=== PATIENT | male | born 1980 | race Caucasian/White ===

== ENCOUNTER 2019-01-26 12:52 | Inpatient (IN) | payer BC ==
[~2019-01-26] VITALS: Ht 180.3 cm; Wt 79.9 kg
[2019-01-26] MEDS ORDERED: ZOLPIDEM TARTRATE 10 MG TABLET PO PRN (19:00)
[2019-01-26] MEDS ORDERED: LORazepam 2 MG TABLET PO PRN (19:00)
[2019-01-26] MEDS ORDERED: HALOPERIDOL 5 MG TABLET PO PRN (19:00)
[2019-01-26 21:30] VITALS: BP 126/86
[2019-01-26] MEDS ORDERED: PNEUMOCOCCAL VACCINE POLYVALENT 0.5 ML VIAL [PPSV23] IM ONE (21:45)
[2019-01-27 05:58] VITALS: BP 153/75
[2019-01-27] MEDS ORDERED: MAGNESIUM HYDROXIDE SUSPENSION 30 ML UDCUP PO PRN (07:45)
[2019-01-27] MEDS ORDERED: GuaiFENesin/D-METHORPHAN [SUGAR-FREE] 200-20MG/10 ML SYRUP UDCUP PO PRN (07:45)
[2019-01-27] MEDS ORDERED: PETROLATUM,WHITE 28 GM JELLY TP PRN (07:45)
[2019-01-27] MEDS ORDERED: MAG HYDROX/AL HYDROX/SIMETH ES 30 ML SUSPENSION UDCUP PO PRN (07:45)
[2019-01-27] MEDS ORDERED: ALBUTEROL SULFATE HFA 90 MCG/PUFF 8 GM INHALER IH PRN (07:45)
[2019-01-27] MEDS ORDERED: ONDANSETRON HCL 4 MG TABLET PO PRN (07:45)
[2019-01-27] MEDS ORDERED: NICOTINE 14 MG/24 HOUR PATCH TD PRN (07:45)
[2019-01-27] MEDS ORDERED: ACETAMINOPHEN 325 MG TABLET PO PRN (07:45)
[2019-01-27] MEDS ORDERED: DOCUSATE SODIUM 100 MG CAPSULE PO PRN (07:45)
[2019-01-27] MEDS ORDERED: LOPERAMIDE HCL 2 MG CAPSULE PO PRN (07:45)
[2019-01-27] MEDS ORDERED: CloNIDine HCL 0.1 MG TABLET PO PRN (07:45)
[2019-01-27] MEDS ORDERED: IBUPROFEN 400 MG TABLET PO PRN (07:45)
[2019-01-27 09:01] VITALS: BP 141/97
[2019-01-27 16:42] VITALS: BP 138/85
[2019-01-28 08:35] VITALS: BP_SYST 113; BP_SYST 156; BP_DIAS 64; BP_DIAS 89
[2019-01-28] MEDS ORDERED: LORazepam 2 MG/ML VIAL ONE (16:39)
[2019-01-28] MEDS ORDERED: DiphenhydrAMINE HCL 50 MG/ML VIAL ONE (16:40)
[2019-01-28] MEDS ORDERED: HALOPERIDOL LACTATE 5 MG/ML VIAL ONE (16:40)
[2019-01-28] MEDS ORDERED: LORazepam 2 MG/ML VIAL IM ONE (16:45)
[2019-01-28] MEDS ORDERED: DiphenhydrAMINE HCL 50 MG/ML VIAL IM ONE (16:45)
[2019-01-28] MEDS ORDERED: HALOPERIDOL LACTATE 5 MG/ML VIAL IM ONE (16:45)
[2019-01-29] MEDS: OLANZapine 5 MG TABLET PO SCH (16:42)
[2019-01-29 16:50] VITALS: BP 147/98
[2019-01-30] MEDS: OLANZapine 5 MG TABLET PO SCH ×2 (09:00→15:20)
[2019-01-30 09:31] VITALS: BP 145/86
[2019-01-30 16:00] VITALS: BP 145/86
[2019-01-31 08:25] VITALS: BP 153/104
[2019-01-31] MEDS: OLANZapine 5 MG TABLET PO SCH ×2 (09:00→17:00)
[2019-02-01] MEDS: OLANZapine 5 MG TABLET PO SCH (08:14)
[2019-02-01 08:49] VITALS: BP 135/97
[2019-02-01] MEDS: ARIPiprazole 15 MG TABLET PO SCH (13:00)
[2019-02-01 16:27] VITALS: BP 151/78
[2019-02-02] MEDS: ARIPiprazole 15 MG TABLET PO SCH (09:00)
[2019-02-02 16:14] VITALS: BP 149/89
[2019-02-03 08:18] VITALS: BP 150/96
[2019-02-03] MEDS: ARIPiprazole 15 MG TABLET PO SCH (09:00)
[2019-02-03] MEDS: AmLODIPine BESYLATE 5 MG TABLET PO SCH (12:15)
[2019-02-03 16:45] VITALS: BP 151/99
[2019-02-03 21:45] VITALS: BP 148/92
[2019-02-04 08:55] VITALS: BP 146/94
[2019-02-04] MEDS: ARIPiprazole 15 MG TABLET PO SCH (08:56)
[2019-02-04] MEDS: AmLODIPine BESYLATE 5 MG TABLET PO SCH (08:56)
[2019-02-04] MEDS ORDERED: ARIP15TA2 PO (12:17)
[2019-02-04] MEDS ORDERED: AMLO5TAB66 PO (12:21)
== END 2019-02-04 16:45 | disposition home or self-care (01) | DRG 885 ==
LOC: EMS 12:54 → 3EC 19:30
PROVIDERS: ADMIT Psychiatry & Neurology Psychiatry; ATTEND Psychiatry & Neurology Psychiatry
DX: F31.9 Bipolar disorder, unspecified (principal); F10.10 Alcohol abuse, uncomplicated; F19.10 Other psychoactive substance abuse, uncomplicated; Z91.410 Personal history of adult physical and sexual abuse; Z59.0 Homelessness; F12.90 Cannabis use, unspecified, uncomplicated; R03.0 Elevated blood-pressure reading, without diagnosis of hypertension; E11.9 Type 2 diabetes mellitus without complications
CPT/HCPCS: J1200; J1630; J2060